=== PATIENT | female | born 1960 | race Caucasian/White ===

== ENCOUNTER → 2022-03-08 | Outpatient (CLI) | payer OTHER ==
[~2022-03-08] MED LIST: ASPIRIN81 MG PO; AZELASTINE137 MCG/0.; DULOXETINE HCL60 MG PO; HYDROCHLOROTHIA25 MG PO; IMDUR ER TAB 3030 MG PO; K-DUR TAB 10 M10 MEQ PO; LIPITOR TAB 2020 MG PO; LOPRESSOR 25 MG25 MG PO; OMNICEF 300 MG300 MG PO; PRILOSEC OTC20 MG PO; PROAIR HFA8.5 GM INH; TYLENOL 500 MG500 MG PO; VOLTAREN100 GM TP; ZOFRAN ODT 4 MG4 MG PO
== END ==
LOC: KOH-I 11:10
DX: M54.50 Low back pain, unspecified (principal); M47.816 Spondylosis without myelopathy or radiculopathy, lumbar region
CPT/HCPCS: 72100

== ENCOUNTER → 2022-03-21 | Outpatient (CLI) | payer OTHER | LOC: KOH-I 14:14 | DX: M79.662 Pain in left lower leg (principal); R22.42 Localized swelling, mass and lump, left lower limb | CPT/HCPCS: 93971 ==